=== PATIENT | female | born 1955 | race Caucasian/White ===

== ENCOUNTER 2019-02-20 19:06 | Inpatient (IN) | payer MEDICARE ==
[2019-02-20 20:08] VITALS: BMI 39.6
[2019-02-20] MEDS ORDERED: Ondansetron PF 4 MG/2 ML Vial IVP PRN (20:30)
[2019-02-20] MEDS ORDERED: Cepastat Lozenges 1 LOZ PO PRN (20:30)
[2019-02-20] MEDS ORDERED: Nitroglycerin 0.4 MG TAB (25 Tab Bottle) SL PRN (20:30)
[2019-02-20] MEDS ORDERED: Calcium Carbonate 500 MG ChewTAB PO PRN (20:30)
[2019-02-20] MEDS ORDERED: Acetaminophen 325 MG TAB PO PRN (20:30)
[2019-02-20] MEDS ORDERED: Promethazine HCl 25 MG/ML VIAL IM PRN (20:32)
[2019-02-20] MEDS: Enoxaparin Sodium 40 MG/0.4 ML SYRINGE SC SCH (21:32)
[2019-02-20] MEDS: Atorvastatin Calcium 40 MG TAB PO SCH (21:32)
[2019-02-20] MEDS: Melatonin 3 MG TAB PO SCH (21:33)
[2019-02-20] MEDS: Piperacillin/Tazobactam 4.5 GM in Sodium Chloride 0.9% 100 ML IVPB SCH (21:33)
[2019-02-20] MEDS: Metoprolol Tartrate 25 MG TAB PO SCH (21:33)
[2019-02-20] MEDS: traZODone HCl 50 MG TAB PO SCH (21:34)
[2019-02-20] MEDS: HYDROmorphone 2 MG TAB PO PRN (21:34)
[2019-02-21] MEDS ORDERED: SODIUM CHLORIDE 0.9% IVPB SCH (04:00)
[2019-02-21] MEDS ORDERED: [UNRECOGNIZED DRUG - OTHER] IVPB SCH (04:00)
[2019-02-21] MEDS ORDERED: Piperacillin/Tazobactam 4.5 GM in Sodium Chloride 0.9% 100 ML IVPB SCH (04:00)
[2019-02-21] MEDS ORDERED: Piperacillin/Tazobactam 4.5 GM VIAL IVPB SCH (04:00)
[2019-02-21] MEDS: Piperacillin/Tazobactam 4.5 GM in Sodium Chloride 0.9% 100 ML IVPB SCH ×3 (04:49→20:34)
[2019-02-21 05:39] LABS: #Eosinphils 0.2 thou/uL (0.0-0.7); #Lymphocytes 1.3 thou/uL (1.20-3.40); #Monocytes 0.4 thou/uL (0.11-0.59); #Neutrophils 2.4 thou/uL (1.40-6.50); %Basophils 0.7 % (0.0-1.0); %Eosinophils 4.8 % (0.0-10.0); %Lymphocytes 30.5 % (21.0-51.0); %Monocytes 8.6 % (0.0-10.0); %Neutrophils 55.4 % (42.0-75.0); Hemoglobin 9.5 g/dL (12.0-16.0); Mean Corpuscular HGB CONC 31.6 g/dL (32.0-36.0); Mean Corpuscular Hemoglobin 27.3 pg (27.0-31.0); Mean Corpuscular Volume 86.5 fL (78.0-98.0); Mean Platelet Volume 6.5 fL (7.4-10.4); Platelet Count 186 thou/uL (130-400); RBC Distribution Width 14.7 % (11.5-14.5); Red Blood Cell (RBC) Count 3.48 mill/uL (4.20-5.40); White Blood Cell (WBC) Count 4.2 thou/uL (4.8-10.8)
[2019-02-21 05:54] LABS: ALT (SGPT) 42 U/L (8-55); AST (SGOT) 42 U/L (5-34); Albumin 3.1 g/dL (3.4-4.8); Alkaline Phosphatase 94 U/L (40-150); Anion Gap 13 mmol/L (10-20); BUN (Urea Nitrogen) 12 mg/dL (9.8-20.1); Bilirubin, Total 0.6 mg/dL (0.2-1.2); Calc. Creatinine Clearance 136 mL/min (70-130); Calcium 9.8 mg/dL (7.8-10.44); Carbon Dioxide 25 mmol/L (23-31); Chloride 108 mmol/L (98-107); Estimated GFR-MDRD 86; Globulin 2.6 g/dL (2.4-3.5); Glucose 105 mg/dL (80-115); Potassium 4.1 mmol/L (3.5-5.1); Protein, Total 5.7 g/dL (6.0-8.3); Sodium 142 mmol/L (136-145)
[2019-02-21] MEDS: HYDROmorphone 2 MG TAB PO PRN ×4 (06:14→20:08)
[2019-02-21] MEDS ORDERED: Enoxaparin Sodium 40 MG/0.4 ML SYRINGE SC SCH (09:00)
[2019-02-21] MEDS ORDERED: Clopidogrel Bisulfate 75 MG TAB PO SCH (09:00)
[2019-02-21] MEDS: Metoprolol Tartrate 25 MG TAB PO SCH ×2 (09:18→20:34)
[2019-02-21] MEDS: Aspirin Chewable 81 MG TAB PO SCH (09:21)
[2019-02-21] MEDS: Enoxaparin Sodium 40 MG/0.4 ML SYRINGE SC SCH (20:33)
[2019-02-21] MEDS: Melatonin 3 MG TAB PO SCH (20:34)
[2019-02-21] MEDS: Atorvastatin Calcium 40 MG TAB PO SCH (20:35)
[2019-02-21] MEDS: traZODone HCl 50 MG TAB PO SCH (20:35)
[2019-02-22] MEDS: Piperacillin/Tazobactam 4.5 GM in Sodium Chloride 0.9% 100 ML IVPB SCH ×3 (04:39→20:10)
[2019-02-22] MEDS: HYDROmorphone 2 MG TAB PO PRN ×4 (06:01→19:13)
[2019-02-22] MEDS: Clopidogrel Bisulfate 75 MG TAB PO SCH (09:03)
[2019-02-22] MEDS: Aspirin Chewable 81 MG TAB PO SCH (09:03)
[2019-02-22] MEDS: Metoprolol Tartrate 25 MG TAB PO SCH ×2 (09:03→20:09)
[2019-02-22] MEDS: Enoxaparin Sodium 40 MG/0.4 ML SYRINGE SC SCH (20:09)
[2019-02-22] MEDS: Atorvastatin Calcium 40 MG TAB PO SCH (20:09)
[2019-02-22] MEDS: Melatonin 3 MG TAB PO SCH (20:09)
[2019-02-22] MEDS: traZODone HCl 50 MG TAB PO SCH (20:10)
[2019-02-23] MEDS: Piperacillin/Tazobactam 4.5 GM in Sodium Chloride 0.9% 100 ML IVPB SCH ×3 (04:38→20:25)
[2019-02-23] MEDS: HYDROmorphone 2 MG TAB PO PRN ×4 (05:50→19:42)
[2019-02-23] MEDS: Clopidogrel Bisulfate 75 MG TAB PO SCH (09:50)
[2019-02-23] MEDS: Aspirin Chewable 81 MG TAB PO SCH (09:50)
[2019-02-23] MEDS: Metoprolol Tartrate 25 MG TAB PO SCH ×2 (09:50→20:24)
[2019-02-23] MEDS: Atorvastatin Calcium 40 MG TAB PO SCH (20:24)
[2019-02-23] MEDS: traZODone HCl 50 MG TAB PO SCH (20:25)
[2019-02-23] MEDS: Melatonin 3 MG TAB PO SCH (20:25)
[2019-02-23] MEDS: Enoxaparin Sodium 40 MG/0.4 ML SYRINGE SC SCH (20:26)
[2019-02-24] MEDS: Piperacillin/Tazobactam 4.5 GM in Sodium Chloride 0.9% 100 ML IVPB SCH ×3 (04:51→20:43)
[2019-02-24] MEDS: HYDROmorphone 2 MG TAB PO PRN ×4 (04:52→18:03)
--- NOTE | 2019-02-24 07:12 | PRG ---
DATE OF SERVICE: 02/23/2019 SUBJECTIVE: Patient visiting with family in her room with no complaints and asking if and when she can start discussing ambulation in the distant future. OBJECTIVE: VITAL SIGNS: Temperature 97.8, pulse 77, respirations 20, O2 sats 97% on room air, blood pressure 129/63. LUNGS: Clear. CARDIAC: Shows regular rhythm. No gallops or murmurs. EXTREMITIES: Left BKA is healing with eschar at the suture line. ASSESSMENT: 1. Resolving left below the knee amputation with some eschar and possible dehiscence. When suture is removed, we will discuss with surgery. 2. Hypertension, controlled to goal. 3. Coronary artery disease, asymptomatic. 4. Peripheral vascular disease, severe in left leg, but otherwise stable. PLAN: 1. Continue antiplatelet drugs of aspirin and Plavix. 2. Continue Zosyn until March 09 for Pseudomonas bacteremia resolution. 3. Continue wound care. 4. Continue to ambulate with wheelchair. Job ID: [id number]
--- NOTE | 2019-02-24 07:16 | PRG ---
DATE OF SERVICE: 02/22/2019 SUBJECTIVE: The patient feels well. No complaints. Cooperating with wound care and assisting with ADLs. OBJECTIVE: VITAL SIGNS: Shows temperature is 96.4, pulse 63, respirations 16, O2 sats 97% on room air, blood pressure 125/71. ASSESSMENT: 1. Acute left below the knee amputation shows minimal drainage from the lateral aspect of the wound, but no erythema or warmth, tenderness and healing otherwise with areas of eschar. 2. Resolving left below the knee amputation. We will discuss with surgery when suture to be removed. 3. Stable peripheral vascular disease. 4. Resolving Pseudomonas bacteremia on Zosyn until March 09. 5. Stable coronary disease asymptomatic. PLAN: 1. Continue PT/OT. 2. Continue wound care. 3. Continue IV Zosyn. 4. Continue to monitor for recurrent angina. Job ID: [id number]
--- NOTE | 2019-02-24 07:22 | PRG ---
DATE OF SERVICE: 02/21/2019 SUBJECTIVE: The patient feels well, lying in bed, cooperating with PT and Wound Care with no complaints of chest pain, shortness of breath, or leg pain. OBJECTIVE: VITAL SIGNS: Temperature is 97.6, pulse 67, respirations 20, O2 sats 97% on room air, blood pressure 125/62. LUNGS: Clear. CARDIAC: Regular rhythm. ABDOMEN: Soft and nontender. EXTREMITIES: Left BKA shows no drainage, persistent eschar, possibly slightly decreased. No erythema or warmth. ASSESSMENT: 1. Resolving left xwanm-ixj-fgnt amputation. 2. Resolving Pseudomonas bacteremia. 3. Stable hypertension. 4. Stable peripheral vascular disease and coronary artery disease. PLAN: 1. Continue PT, OT and wound care. 2. Continue Zosyn until March 09. 3. Continue pain relief with hydromorphone. 4. Continue DVT and stress ulcer prophylaxis. 5. Continue antiplatelet drugs. Job ID: [id number]
--- NOTE | 2019-02-24 07:34 | HP ---
HISTORY OF PRESENT ILLNESS: The patient is an unfortunate 63-year-old white female who has undergone left njauo-ozg-cfun amputation after failing several times to provide recirculation to left lower extremity for severe ischemia and inability to heal a left foot lesion. This she states dates from a previous traumatic injury to her left leg several years ago. She was a smoker, 10-19 cigarettes a day until 6-12 months ago, but has no other peripheral vascular disease. She has been attempted to have revascularization twice with rejection of the grafts and significant severe arterial bleeding requiring revision and then subsequently removal of the grafts and left xchdh-gqs-rawm amputation. She is doing well at this time and is admitted here for PT/OT and wound care. Her surgeon is concerned that her left BKA stump will not completely heal and will dehisce somewhat when she has her sutures removed, but we will monitor closely. At present, she is on Plavix 75 daily, Lovenox 40 subcu daily, Dilaudid 4 mg every 4 hours as needed, Melatonin 3 mg nightly, metoprolol 12.5 twice daily, Zosyn 4.5 g q.8 hours until March 09, trazodone 50 mg at bedtime, atorvastatin 80 mg at bedtime, calcium carbonate every 4 hours, aspirin 81 mg daily. She is on the antibiotics because of gangrene of the left stump previously, most likely due to ischemia and should heal, but will need to be monitored closely. She has had no evidence of sepsis associated with the gangrene. The patient is also on the Zosyn, because of bacteremia showing Pseudomonas in 2/2 cultures as well as the wound culture and therefore need for 2 weeks of IV antibiotics for bacteremia. PAST MEDICAL HISTORY: Positive coronary artery disease status post prior myocardial infarction and subsequent need for coronary angioplasty x2. She also has a history of cholecystectomy, appendectomy, bilateral tubal ligation, previous transient ischemic attack. ALLERGIES: SHE IS ALLERGIC TO DEMEROL. SOCIAL HISTORY: She smoked a pack a day until last year. She drinks only rarely. She lives with her daughter. FAMILY MEDICAL HISTORY: Noncontributory. REVIEW OF SYSTEMS: HEENT: She denies headaches, dizziness, change in vision or hearing, hoarseness or dysphagia. PULMONARY: She denies cough, sputum production, pneumonia, asthma, tuberculosis. CARDIOVASCULAR: She denies chest pain, orthopnea, paroxysmal nocturnal dyspnea or edema. GASTROINTESTINAL: She denies nausea, vomiting, diarrhea, constipation, or abdominal pain. GENITOURINARY: Denies dysuria, hematuria or nocturia. MUSCULOSKELETAL: See history of present illness. PHYSICAL EXAMINATION: GENERAL: Patient is a pleasant, obese, white female in no acute distress, lying in bed, oriented x3 and cooperative. VITAL SIGNS: Showed her to have temperature of 98.2, pulse 64, respirations 16, O2 sats 92% on room air, blood pressure 124/75. HEENT: Pupils are equal, round, and reactive to light and accommodation. Sclerae anicteric. Conjunctivae pale. Oral mucous membranes well hydrated. NECK: Supple. There are no nodes or masses. JVP is not elevated. LUNGS: Clear. CARDIAC: Showed regular rhythm. ABDOMEN: Soft, nontender. SKIN: Show left ekupx-qux-ygwm amputation with eschar at the suture line, but with no drainage, erythema, or particular tenderness NEUROLOGICAL: Intact, cranial nerves 2-12. Deep tendon reflex 2+ and equal. Absent Babinski. ASSESSMENT: 1. Severe peripheral vascular disease, status post left wfxbm-lsb-xsas amputation after 2 failed femoral-popliteal grafts with subsequent near life-limiting bleeding after rejection. 2. Pseudomonas bacteremia, on Zosyn until 2 week course is finished. 3. Coronary artery disease, asymptomatic, status post stents. 4. History of nicotine abuse, now resolved, last year. 5. Hypertension, controlled to goal. PLAN: 1. Continue IV Zosyn until March 09. 2. Continue wound care. 3. Continue antiplatelet drugs with Plavix. 4. Continue DVT prophylaxis with Lovenox. 5. Continue pain relief with hydromorphone. Job ID: [id number]
[2019-02-24] MEDS: Metoprolol Tartrate 25 MG TAB PO SCH ×2 (09:07→20:41)
[2019-02-24] MEDS: Aspirin Chewable 81 MG TAB PO SCH (09:07)
[2019-02-24] MEDS: Clopidogrel Bisulfate 75 MG TAB PO SCH (09:07)
[2019-02-24] MEDS: Melatonin 3 MG TAB PO SCH (20:41)
[2019-02-24] MEDS: Atorvastatin Calcium 40 MG TAB PO SCH (20:41)
[2019-02-24] MEDS: traZODone HCl 50 MG TAB PO SCH (20:42)
[2019-02-24] MEDS: Enoxaparin Sodium 40 MG/0.4 ML SYRINGE SC SCH (20:42)
--- NOTE | 2019-02-24 21:32 | PRG ---
DATE OF SERVICE: 02/24/2019 SUBJECTIVE: The patient is a 63-year-old white female with history of severe peripheral vascular disease, status post left BKA, who is now having increasing pain and erythema with left BKA. OBJECTIVE: VITAL SIGNS: Temperature 97, pulse 59, respirations 18, O2 sats 96% on room air, and blood pressure is 118/53. SKIN: New left stump shows increased erythema, tenderness, no drainage. LUNGS: Clear. CARDIAC: Regular rhythm. ASSESSMENT: 1. Severe peripheral vascular disease with left swevh-unf-spsx amputation showing signs of increased infection despite being on Zosyn, which we will continue until March 09. 2. Hypertension, controlled to goal. PLAN: Send picture to surgeon. Continue Zosyn, culture drainage if possible. Consider opening wound. Job ID: [id number]
[2019-02-25] MEDS: HYDROmorphone 2 MG TAB PO PRN ×5 (05:13→21:25)
[2019-02-25] MEDS: Piperacillin/Tazobactam 4.5 GM in Sodium Chloride 0.9% 100 ML IVPB SCH ×3 (05:13→21:24)
[2019-02-25] MEDS: Aspirin Chewable 81 MG TAB PO SCH (09:19)
[2019-02-25] MEDS: Metoprolol Tartrate 25 MG TAB PO SCH ×2 (09:19→21:25)
[2019-02-25] MEDS: Clopidogrel Bisulfate 75 MG TAB PO SCH (09:19)
[2019-02-25] MEDS ORDERED: Piperacillin/Tazobactam 4.5 GM VIAL ONE (13:09)
--- NOTE | 2019-02-25 20:42 | PRG ---
DATE OF SERVICE: 02/25/2019 SUBJECTIVE: The patient is a very pleasant 63-year-old white female with a history of severe PVD of the left leg, status post left below-knee amputation after failed femoral-popliteal bypass, who is having decreasing pain in her left BKA stump, but is having significant eschar and erythema 3 weeks after surgery. We discussed with surgeon, who feels that the incision will open when sutures were removed and states they can be removed at anytime for secondary healing. OBJECTIVE: VITAL SIGNS: Her blood pressure 113/53, temperature is 97.6, pulse 60, respirations 16, and O2 sats 95% on room air. LUNGS: Clear. CARDIAC: Regular rhythm. EXTREMITIES: Show left BKA with decreased erythema of persistent eschar, minimal drainage. Cultures showing minimal bacteria. ASSESSMENT: 1. Resolving left below knee amputation with questionable infection and poor healing, but with decreasing pain, so we will continue to monitor. We will not remove sutures at the patient's request for least another week. We will continue on her piperacillin until March 09. 2. Hypertension, controlled to goal and we will continue to monitor. Job ID: [id number]
[2019-02-25] MEDS: Atorvastatin Calcium 40 MG TAB PO SCH (21:24)
[2019-02-25] MEDS: Melatonin 3 MG TAB PO SCH (21:25)
[2019-02-25] MEDS: traZODone HCl 50 MG TAB PO SCH (21:25)
[2019-02-25] MEDS: Enoxaparin Sodium 40 MG/0.4 ML SYRINGE SC SCH (21:27)
[2019-02-26] MEDS: HYDROmorphone 2 MG TAB PO PRN ×5 (01:34→20:33)
[2019-02-26] MEDS: Piperacillin/Tazobactam 4.5 GM in Sodium Chloride 0.9% 100 ML IVPB SCH ×3 (05:30→20:31)
[2019-02-26] MEDS: Aspirin Chewable 81 MG TAB PO SCH (08:19)
[2019-02-26] MEDS: Clopidogrel Bisulfate 75 MG TAB PO SCH (08:19)
[2019-02-26] MEDS: Metoprolol Tartrate 25 MG TAB PO SCH ×2 (08:19→20:30)
[2019-02-26] MEDS: Atorvastatin Calcium 40 MG TAB PO SCH (20:30)
[2019-02-26] MEDS: traZODone HCl 50 MG TAB PO SCH (20:30)
[2019-02-26] MEDS: Melatonin 3 MG TAB PO SCH (20:30)
[2019-02-26] MEDS: Enoxaparin Sodium 40 MG/0.4 ML SYRINGE SC SCH (20:31)
--- NOTE | 2019-02-26 22:16 | PRG ---
DATE OF SERVICE: 02/26/2019 SUBJECTIVE: The patient feels well. She states that her leg is feeling better. She is learning to strengthen her right leg, is hopping on a walker. Shows still a significant amount of eschar on the left leg with some tenderness on palpation of the eschar, but minimal drainage. OBJECTIVE: VITAL SIGNS: Temperature is 97.5 pulse 75, respirations 18, O2 sat is 97% on room air, blood pressure 127/57. LUNGS: Clear. CARDIAC: Examination is regular rhythm. LABORATORY DATA: Culture shows only a few yeast. ASSESSMENT: Resolving left lektz-yfz-swfr amputation with persistent eschar, possible necrosis under the eschar, drainage. There is no evidence of increased swelling or erythema. LUNGS: Clear. CARDIAC: Showed regular rhythm. ABDOMEN: Soft, nontender. ASSESSMENT: 1. Slowly healing left uyirt-xfl-oiuy amputation with possible need for secondary healing after sutures removed next week. 2. Stable hypertension. PLAN: 1. Continue wound care. 2. Continue IV piperacillin until March 09. 3. Continue blood pressure control. Job ID: [id number]
[2019-02-27] MEDS: Piperacillin/Tazobactam 4.5 GM in Sodium Chloride 0.9% 100 ML IVPB SCH ×3 (04:59→20:17)
[2019-02-27] MEDS: HYDROmorphone 2 MG TAB PO PRN ×4 (05:00→18:33)
[2019-02-27] MEDS: Aspirin Chewable 81 MG TAB PO SCH (09:25)
[2019-02-27] MEDS: Metoprolol Tartrate 25 MG TAB PO SCH ×2 (09:25→20:17)
[2019-02-27] MEDS: Clopidogrel Bisulfate 75 MG TAB PO SCH (09:25)
[2019-02-27] MEDS: Enoxaparin Sodium 40 MG/0.4 ML SYRINGE SC SCH (20:16)
[2019-02-27] MEDS: Atorvastatin Calcium 40 MG TAB PO SCH (20:16)
[2019-02-27] MEDS: traZODone HCl 50 MG TAB PO SCH (20:17)
[2019-02-27] MEDS: Melatonin 3 MG TAB PO SCH (20:17)
--- NOTE | 2019-02-27 20:58 | PRG ---
DATE OF SERVICE: 02/27/2019 SUBJECTIVE: The patient feels well, lying in bed, has been scrubbing her wounds, has been doing PT, hopping on her right leg, feeling well, but still worried about the wound opening with the sutures removed next week. OBJECTIVE: Shows; 1. GENERAL: Wound appears to be healing, but with eschar in between the sutures, which is appearing to break loose. 2. VITAL SIGNS: Temperature is 98, pulse 70, respirations 16, O2 sats 95% on room air, blood pressure 116/60. 3. LUNGS: Clear. 4. CARDIAC: Shows regular rhythm. 5. ABDOMEN: Soft and nontender. ASSESSMENT: 1. Peripheral vascular disease status post left ehdrp-tdk-wxac amputation with slow healing with no evidence of infection, on IV meropenem until March 09. 2. Hypertension, controlled to goal. 3. Mild anxiety. PLAN: 1. Continue PT/OT. 2. Continue IV meropenem until March 09. 3. Continue wound care with sutures to be removed next week. Job ID: [id number]
[2019-02-28] MEDS: Piperacillin/Tazobactam 4.5 GM in Sodium Chloride 0.9% 100 ML IVPB SCH ×3 (04:54→20:36)
[2019-02-28] MEDS: HYDROmorphone 2 MG TAB PO PRN ×5 (04:57→21:42)
[2019-02-28] MEDS: Aspirin Chewable 81 MG TAB PO SCH (08:24)
[2019-02-28] MEDS: Clopidogrel Bisulfate 75 MG TAB PO SCH (08:24)
[2019-02-28] MEDS: Metoprolol Tartrate 25 MG TAB PO SCH ×2 (08:24→20:33)
[2019-02-28] MEDS: Melatonin 3 MG TAB PO SCH (20:34)
[2019-02-28] MEDS: Enoxaparin Sodium 40 MG/0.4 ML SYRINGE SC SCH (20:35)
[2019-02-28] MEDS: Atorvastatin Calcium 40 MG TAB PO SCH (20:35)
[2019-02-28] MEDS: traZODone HCl 50 MG TAB PO SCH (20:35)
[2019-03-01] MEDS: HYDROmorphone 2 MG TAB PO PRN ×4 (05:02→19:30)
[2019-03-01] MEDS: Piperacillin/Tazobactam 4.5 GM in Sodium Chloride 0.9% 100 ML IVPB SCH ×3 (05:03→20:20)
[2019-03-01] MEDS: Metoprolol Tartrate 25 MG TAB PO SCH ×2 (08:58→20:19)
[2019-03-01] MEDS: Aspirin Chewable 81 MG TAB PO SCH (08:58)
[2019-03-01] MEDS: Clopidogrel Bisulfate 75 MG TAB PO SCH (08:58)
[2019-03-01] MEDS: Atorvastatin Calcium 40 MG TAB PO SCH (20:19)
[2019-03-01] MEDS: traZODone HCl 50 MG TAB PO SCH (20:19)
[2019-03-01] MEDS: Melatonin 3 MG TAB PO SCH (20:19)
[2019-03-01] MEDS: Enoxaparin Sodium 40 MG/0.4 ML SYRINGE SC SCH (20:20)
[2019-03-02] MEDS: HYDROmorphone 2 MG TAB PO PRN ×4 (02:35→22:38)
[2019-03-02] MEDS: Piperacillin/Tazobactam 4.5 GM in Sodium Chloride 0.9% 100 ML IVPB SCH ×3 (04:57→20:34)
[2019-03-02] MEDS: Aspirin Chewable 81 MG TAB PO SCH (08:33)
[2019-03-02] MEDS: Metoprolol Tartrate 25 MG TAB PO SCH ×2 (08:33→20:36)
[2019-03-02] MEDS: Clopidogrel Bisulfate 75 MG TAB PO SCH (08:34)
--- NOTE | 2019-03-02 09:28 | PRG ---
DATE OF SERVICE: 02/28/2019 SUBJECTIVE: The patient is a very pleasant 63-year-old white female with a history of hypertension and severe peripheral vascular disease of the left leg, requiring left goqba-kzy-mzcc amputation after inability to improve circulation with left femoral arterial stent. She is on IV antibiotics and there is still concern of poor healing of the left BKA stump by her surgeon, Dr. Brown and therefore she is to have her sutures remain in for 4 weeks prior to removal and this will be done next week. She is having persistent, but decreased tenderness at the incision site, but not otherwise in the stump. OBJECTIVE: VITAL SIGNS: Showed to have temperature 97.5, pulse 71, respirations 19, O2 saturations 97% on room air, and blood pressure 108/66. LUNGS: Clear. CARDIAC: Showed regular rhythm. ABDOMEN: Soft and nontender. Left stump shows some mild erythema on the incision site, but significant eschar in the middle of the incision along the incision site with some loosening of the eschars, but no drainage. ASSESSMENT: 1. Slowly resolving left gudgt-vhi-enwf amputation with some evidence of poor healing at the incision site. 2. Stable hypertension. 3. Severe peripheral vascular disease with risk of poor healing. PLAN: 1. Continue sutures in place until next week and then remove and monitor for secondary healing. 2. Continue blood pressure control. 3. Continue IV meropenem until next week. Job ID: [id number]
--- NOTE | 2019-03-02 15:56 | PRG ---
DATE OF SERVICE: 03/02/2019 SUBJECTIVE: Ms. Kelsey is resting comfortably. Pain is controlled. Denies any complaints. No family at bedside, discussed with nursing. OBJECTIVE: VITAL SIGNS: She is afebrile. Heart rate 67, respirations 21, oxygen saturation 97% on room air, blood pressure 114/65. CARDIOVASCULAR: S1 and S2 plus. RESPIRATORY: Normal vesicular breath sounds. ABDOMEN: Soft, obese, nontender. Bowel sounds heard in all quadrants. EXTREMITIES: Without cyanosis or clubbing. Left BKA. IMPRESSION: 1. Coronary artery disease. 2. Peripheral vascular disease. 3. Dyslipidemia. 4. Deconditioning. PLAN: 1. Continue heart healthy diet. 2. Wound care. 3. Monitor blood pressure. 4. Routine laboratory values. 5. Physical therapy. 6. DVT and stress ulcer prophylaxis. 7. Decubitus precautions. 8. Routine laboratory values. 9. Discussed with the patient in detail. All questions answered. Job ID: [id number]
[2019-03-02] MEDS: Enoxaparin Sodium 40 MG/0.4 ML SYRINGE SC SCH (20:35)
[2019-03-02] MEDS: Atorvastatin Calcium 40 MG TAB PO SCH (20:36)
[2019-03-02] MEDS: traZODone HCl 50 MG TAB PO SCH (20:36)
[2019-03-02] MEDS: Melatonin 3 MG TAB PO SCH (20:36)
[2019-03-03] MEDS: HYDROmorphone 2 MG TAB PO PRN ×5 (04:01→21:29)
[2019-03-03] MEDS: Piperacillin/Tazobactam 4.5 GM in Sodium Chloride 0.9% 100 ML IVPB SCH ×3 (04:01→20:36)
[2019-03-03] MEDS: Aspirin Chewable 81 MG TAB PO SCH (08:32)
[2019-03-03] MEDS: Metoprolol Tartrate 25 MG TAB PO SCH ×2 (08:33→20:37)
[2019-03-03] MEDS: Clopidogrel Bisulfate 75 MG TAB PO SCH (08:33)
[2019-03-03] MEDS ORDERED: Piperacillin/Tazobactam 4.5 GM VIAL ONE ×3 (12:54→23:11)
--- NOTE | 2019-03-03 16:12 | PRG ---
DATE OF SERVICE: 03/03/2019 SUBJECTIVE: Ms. Kelsey is doing well, denies any complaints, resting comfortably in bed. Pain is well controlled. Discussed with nursing. OBJECTIVE: VITAL SIGNS: She is afebrile, heart rate 65, respirations 20, oxygen saturation 96% on room air, and blood pressure 125/70. CARDIOVASCULAR SYSTEM: S1 and S2 plus. RESPIRATORY SYSTEM: Normal vesicular breath sounds. ABDOMEN: Soft, obese, nontender. Bowel sounds heard in all quadrants. EXTREMITIES: Without cyanosis or clubbing. Left BKA. CENTRAL NERVOUS SYSTEM: Awake and responsive. Cranial nerves 2 through 12 intact. Generalized weakness. IMPRESSION: 1. Severe peripheral vascular disease, requiring left BKA. 2. Coronary artery disease. 3. Dyslipidemia. 4. Deconditioning. PLAN: 1. Continue heart healthy diet. 2. Wound care. 3. Nutritional support. 4. DVT and stress ulcer prophylaxis. 5. Decubitus precautions. 6. Routine laboratory values. 7. Dr. Frantz Persaud will assume care at 9 p[address] [facility]. Job ID: [id number]
[2019-03-03] MEDS: Enoxaparin Sodium 40 MG/0.4 ML SYRINGE SC SCH (20:37)
[2019-03-03] MEDS: Atorvastatin Calcium 40 MG TAB PO SCH (20:37)
[2019-03-03] MEDS: Melatonin 3 MG TAB PO SCH (20:37)
[2019-03-03] MEDS: traZODone HCl 50 MG TAB PO SCH (20:37)
[2019-03-04] MEDS: HYDROmorphone 2 MG TAB PO PRN ×5 (02:57→22:58)
[2019-03-04] MEDS: Piperacillin/Tazobactam 4.5 GM in Sodium Chloride 0.9% 100 ML IVPB SCH ×3 (05:19→20:45)
--- NOTE | 2019-03-04 07:09 | PRG ---
DATE OF SERVICE: 03/01/2019 SUBJECTIVE: The patient feels well, lying in bed, decreasing pain in her left stump. Working well with therapy with increasing strength in her right leg. She is on IV antibiotics until February 27 and IV piperacillin till March 09. She said no overt fever or chills. She has had decreasing pain left stump appears to be healing well with decreasing erythema, but still having some eschar between the sutures, which appears to possibly need to be debrided when sutures were removed. The patient is hesitant to have this done at this time. We will wait till next week. OBJECTIVE: VITAL SIGNS: Her temperature 97.6, pulse 68, respirations 17, O2 sats 98% on room air, blood pressure 118/64. LUNGS: Clear. CARDIAC: Regular rhythm. ABDOMEN: Soft and nontender. ASSESSMENT: 1. Resolving left below knee amputation with persistent evidence of possible poor healing in certain parts of the incision, but with decreasing pain and tenderness, on IV antibiotics until March 09. 2. Hypertension, controlled to goal. 3. Severe peripheral vascular disease in the left leg, but appears to be improving with no further pain. PLAN: 1. Continue karime till next week and then remove secondary wound care. 2. Continue IV Zosyn until March 09. 3. Continue PT/OT, and strengthening of the right leg. Job ID: [id number]
[2019-03-04] MEDS: Clopidogrel Bisulfate 75 MG TAB PO SCH (08:14)
[2019-03-04] MEDS: Aspirin Chewable 81 MG TAB PO SCH (08:14)
[2019-03-04] MEDS: Metoprolol Tartrate 25 MG TAB PO SCH ×2 (08:14→20:46)
--- NOTE | 2019-03-04 08:20 | PRG ---
DATE OF SERVICE: 03/04/2019 SUBJECTIVE: The patient feels well, but is having some concern about her incision as it does appear to have more eschar, necrotic skin and agrees that sutures need to be removed. OBJECTIVE: VITAL SIGNS: Temperature is 97.2, pulse 65, respirations 20, O2 saturations 96% on room air, and blood pressure 119/73. CARDIAC: Shows regular rhythm. EXTREMITIES: Left BKA stump shows increased necrosis of the suture line. ASSESSMENT: 1. Left below knee amputation with adequate healing of suture line. 2. No evidence of active circulation and femoral graft dysfunction. 3. Stable hypertension. 4. Increased anxiety. PLAN: 1. Remove sutures this afternoon with wound care. 2. Continue PT/OT. 3. Continue blood pressure control. Job ID: [id number]
[2019-03-04] MEDS ORDERED: Sodium Chloride 0.9% 10 ML ONE (13:59)
[2019-03-04] MEDS: Nystatin Cream 15 GM TUBE TOP SCH (20:42)
[2019-03-04] MEDS: Enoxaparin Sodium 40 MG/0.4 ML SYRINGE SC SCH (20:45)
[2019-03-04] MEDS: Atorvastatin Calcium 40 MG TAB PO SCH (20:45)
[2019-03-04] MEDS: traZODone HCl 50 MG TAB PO SCH (20:46)
[2019-03-04] MEDS: Melatonin 3 MG TAB PO SCH (20:47)
[2019-03-05] MEDS: HYDROmorphone 2 MG TAB PO PRN ×5 (05:44→22:15)
[2019-03-05] MEDS: Piperacillin/Tazobactam 4.5 GM in Sodium Chloride 0.9% 100 ML IVPB SCH ×3 (05:45→20:00)
[2019-03-05] MEDS: Clopidogrel Bisulfate 75 MG TAB PO SCH (08:09)
[2019-03-05] MEDS: Metoprolol Tartrate 25 MG TAB PO SCH ×2 (08:09→20:02)
[2019-03-05] MEDS: Aspirin Chewable 81 MG TAB PO SCH (08:09)
[2019-03-05] MEDS: Nystatin Cream 15 GM TUBE TOP SCH ×2 (08:10→20:04)
[2019-03-05] MEDS: Enoxaparin Sodium 40 MG/0.4 ML SYRINGE SC SCH (20:00)
[2019-03-05] MEDS: Melatonin 3 MG TAB PO SCH (20:01)
[2019-03-05] MEDS: traZODone HCl 50 MG TAB PO SCH (20:01)
[2019-03-05] MEDS: Atorvastatin Calcium 40 MG TAB PO SCH (20:03)
--- NOTE | 2019-03-05 20:40 | PRG ---
DATE OF SERVICE: 03/05/2019 SUBJECTIVE: The patient feels well, but states she had significant pain yesterday after sutures were removed. She has had compression dressing all day today and has noticed some minimal drainage from the left stump. OBJECTIVE: EXTREMITIES: Dressing is dry except for an area of dark blood at the lateral aspect of the stump. LUNGS: Clear. CARDIAC: Regular rhythm. VITAL SIGNS: Temperature is 98, pulse 69, respirations 20, O2 sats 93% on room air, blood pressure 127/74. ASSESSMENT: 1. Left ooixr-zfn-eglk amputation secondary to severe peripheral vascular disease, healing slowly with dehiscence of wound pending. 2. Hypertension, controlled to goal. PLAN: 1. Continue wound care. 2. Take pictures and send to surgeon tomorrow, assess followup surgically. 3. Continue IV Zosyn until March 09. 4. Obtain CBC and comprehensive metabolic panel in the a.m. Job ID: [id number]
[2019-03-06] MEDS: Piperacillin/Tazobactam 4.5 GM in Sodium Chloride 0.9% 100 ML IVPB SCH ×3 (05:10→20:07)
[2019-03-06] MEDS: HYDROmorphone 2 MG TAB PO PRN ×5 (05:12→22:16)
[2019-03-06 05:37] LABS: #Eosinphils 0.3 thou/uL (0.0-0.7); #Lymphocytes 1.9 thou/uL (1.20-3.40); #Monocytes 0.5 thou/uL (0.11-0.59); %Basophils 0.9 % (0.0-1.0); %Eosinophils 6.2 % (0.0-10.0); %Lymphocytes 40.1 % (21.0-51.0); %Monocytes 10.2 % (0.0-10.0); %Neutrophils 42.6 % (42.0-75.0); Hemoglobin 11.2 g/dL (12.0-16.0); Mean Corpuscular HGB CONC 31.5 g/dL (32.0-36.0); Mean Corpuscular Hemoglobin 27.9 pg (27.0-31.0); Mean Corpuscular Volume 88.8 fL (78.0-98.0); Mean Platelet Volume 7.3 fL (7.4-10.4); Platelet Count 166 thou/uL (130-400); RBC Distribution Width 14.7 % (11.5-14.5); White Blood Cell (WBC) Count 4.7 thou/uL (4.8-10.8)
[2019-03-06 05:53] LABS: ALT (SGPT) 36 U/L (8-55); AST (SGOT) 31 U/L (5-34); Albumin 3.5 g/dL (3.4-4.8); Alkaline Phosphatase 104 U/L (40-150); Anion Gap 13 mmol/L (10-20); BUN (Urea Nitrogen) 9 mg/dL (9.8-20.1); Bilirubin, Total 0.3 mg/dL (0.2-1.2); Calc. Creatinine Clearance 136 mL/min (70-130); Calcium 10.1 mg/dL (7.8-10.44); Carbon Dioxide 24 mmol/L (23-31); Chloride 109 mmol/L (98-107); Estimated GFR-MDRD 86; Globulin 2.7 g/dL (2.4-3.5); Glucose 96 mg/dL (80-115); Potassium 4.2 mmol/L (3.5-5.1); Protein, Total 6.2 g/dL (6.0-8.3); Sodium 142 mmol/L (136-145)
[2019-03-06] MEDS: Nystatin Cream 15 GM TUBE TOP SCH ×2 (09:14→22:16)
[2019-03-06] MEDS: Clopidogrel Bisulfate 75 MG TAB PO SCH (09:15)
[2019-03-06] MEDS: Aspirin Chewable 81 MG TAB PO SCH (09:15)
[2019-03-06] MEDS: Metoprolol Tartrate 25 MG TAB PO SCH ×2 (09:15→20:06)
[2019-03-06] MEDS: Atorvastatin Calcium 40 MG TAB PO SCH (20:05)
[2019-03-06] MEDS: Enoxaparin Sodium 40 MG/0.4 ML SYRINGE SC SCH (20:06)
[2019-03-06] MEDS: Melatonin 3 MG TAB PO SCH (22:16)
[2019-03-06] MEDS: traZODone HCl 50 MG TAB PO SCH (22:16)
[2019-03-07] MEDS: Piperacillin/Tazobactam 4.5 GM in Sodium Chloride 0.9% 100 ML IVPB SCH ×3 (04:49→20:57)
[2019-03-07] MEDS: HYDROmorphone 2 MG TAB PO PRN ×3 (05:32→21:04)
--- NOTE | 2019-03-07 07:51 | PRG ---
DATE OF SERVICE: 03/06/2019 SUBJECTIVE: The patient feels better today with decreased pain in the stump, but has been found to have some drainage from the stump and some dehiscence of the central part of the wound. She is having no fever or chills. Decreasing leg pain. OBJECTIVE: VITAL SIGNS: Show temperature 98.2, pulse 70, respirations 16, O2 sats 98% on room air, and blood pressure 115/58. LUNGS: Clear. CARDIAC: Showed regular rhythm. ABDOMEN: Soft and nontender. Left stump shows sutures removed with eschar still in place and beginning to show some dehiscence about 0.5 inch deep, 0.5 inch wide. ASSESSMENT: 1. Left drhel-ugf-vczy amputation with dehiscence of wound, on antibiotics until March 09. 2. Stable hypertension. PLAN: Send pictures to surgeon, Dr. Brown and get opinion on whether needs debridement or wound VAC. We will get another culture today to determine need to continue antibiotics. Job ID: [id number]
[2019-03-07] MEDS: Clopidogrel Bisulfate 75 MG TAB PO SCH (08:56)
[2019-03-07] MEDS: Aspirin Chewable 81 MG TAB PO SCH (08:56)
[2019-03-07] MEDS: Nystatin Cream 15 GM TUBE TOP SCH ×2 (08:56→21:03)
[2019-03-07] MEDS: Metoprolol Tartrate 25 MG TAB PO SCH ×2 (08:56→21:01)
[2019-03-07] MEDS: Atorvastatin Calcium 40 MG TAB PO SCH (21:00)
[2019-03-07] MEDS: Enoxaparin Sodium 40 MG/0.4 ML SYRINGE SC SCH (21:00)
[2019-03-07] MEDS: Melatonin 3 MG TAB PO SCH (21:00)
[2019-03-07] MEDS: traZODone HCl 50 MG TAB PO SCH (21:01)
[2019-03-08] MEDS: Piperacillin/Tazobactam 4.5 GM in Sodium Chloride 0.9% 100 ML IVPB SCH ×3 (04:39→21:38)
[2019-03-08] MEDS: Metoprolol Tartrate 25 MG TAB PO SCH ×2 (09:19→21:39)
[2019-03-08] MEDS: Nystatin Cream 15 GM TUBE TOP SCH ×2 (09:20→21:41)
[2019-03-08] MEDS: Aspirin Chewable 81 MG TAB PO SCH (09:20)
[2019-03-08] MEDS: Clopidogrel Bisulfate 75 MG TAB PO SCH (09:20)
[2019-03-08] MEDS ORDERED: traMADol HCl 50 MG TAB PO PRN (11:01)
[2019-03-08] MEDS: HYDROmorphone 2 MG TAB PO PRN ×2 (13:10→21:40)
[2019-03-08] MEDS: Atorvastatin Calcium 40 MG TAB PO SCH (21:39)
[2019-03-08] MEDS: Melatonin 3 MG TAB PO SCH (21:39)
[2019-03-08] MEDS: traZODone HCl 50 MG TAB PO SCH (21:39)
[2019-03-08] MEDS: Enoxaparin Sodium 40 MG/0.4 ML SYRINGE SC SCH (21:39)
[2019-03-09] MEDS: Piperacillin/Tazobactam 4.5 GM in Sodium Chloride 0.9% 100 ML IVPB SCH ×2 (04:57→13:14)
[2019-03-09] MEDS: Clopidogrel Bisulfate 75 MG TAB PO SCH (08:40)
[2019-03-09] MEDS: Metoprolol Tartrate 25 MG TAB PO SCH ×2 (08:40→20:32)
[2019-03-09] MEDS: Aspirin Chewable 81 MG TAB PO SCH (08:40)
[2019-03-09] MEDS: Nystatin Cream 15 GM TUBE TOP SCH ×2 (08:41→20:33)
--- NOTE | 2019-03-09 10:58 | PRG ---
DATE OF SERVICE: 03/07/2019 SUBJECTIVE: The patient feels better with decreasing pain in the stump and is slowly having debridement of eschar with changes in wound dressing. Having no fever or chills. OBJECTIVE: VITAL SIGNS: Temperature 97, pulse 66, respirations 20, O2 saturations 100% on room air, blood pressure 131/78. EXTREMITIES: Left stump is bandaged, but is nontender and pictures show the healing eschar. ASSESSMENT: 1. Resolving left below knee amputation with wound healing with mild dehiscence of the wound with removal of sutures. 2. Hypertension, controlled to goal. 3. Deconditioning, improving greatly. PLAN: 1. Discussed PT/OT and continuation with therapy. The patient is getting stronger. 2. Continue wound care per nurses. 3. Continue blood pressure control. Job ID: [id number]
--- NOTE | 2019-03-09 10:58 | PRG ---
DATE OF SERVICE: 03/08/2019 SUBJECTIVE: The patient feels well, decreasing pain in her leg and decreasing drainage from her stump and is cooperating well with therapy. OBJECTIVE: VITAL SIGNS: Blood pressure is 140/70, temperature is 98.7, pulse 66, respirations 16, and O2 saturations 95% on room air. LUNGS: Clear. CARDIAC: Regular rhythm. No gallops or murmurs. ABDOMEN: Obese and nontender. SKIN AND EXTREMITIES: Showed left BKA healing well with no drainage. ASSESSMENT: 1. Stable hypertension. 2. Resolving left below knee amputation with dehiscence of wound, but with secondary healing. 3. Deconditioning, improving greatly with therapy. PLAN: Continue PT, OT and nursing wound care this weekend, possibly discharge home next week as patient feels she is close to baseline to maintain ADLs. Job ID: [id number]
--- NOTE | 2019-03-09 10:58 | PRG ---
DATE OF SERVICE: 03/09/2019 SUBJECTIVE: The patient feels well. States she is ready for discharge next week and feels her right leg is strong. Also left leg appears to have minimal pain and is having decreasing drainage with wound care. OBJECTIVE: LUNGS: Clear. CARDIAC: Regular rhythm. EXTREMITIES: Wound is bandaged with no drainage or redness and no tenderness. ASSESSMENT: 1. Resolving left below knee amputation, status post mild dehiscence of wound with bandaging clean. 2. Hypertension, controlled to goal. 3. Deconditioning, resolved. PLAN: Possible discharge on Monday. Continue wound care. Continue blood pressure control. Job ID: [id number]
[2019-03-09] MEDS: Melatonin 3 MG TAB PO SCH (20:32)
[2019-03-09] MEDS: traZODone HCl 50 MG TAB PO SCH (20:32)
[2019-03-09] MEDS: Enoxaparin Sodium 40 MG/0.4 ML SYRINGE SC SCH (20:33)
[2019-03-09] MEDS: Atorvastatin Calcium 40 MG TAB PO SCH (20:35)
[2019-03-10] MEDS: Metoprolol Tartrate 25 MG TAB PO SCH ×2 (08:29→20:57)
[2019-03-10] MEDS: Clopidogrel Bisulfate 75 MG TAB PO SCH (08:29)
[2019-03-10] MEDS: Aspirin Chewable 81 MG TAB PO SCH (08:29)
[2019-03-10] MEDS: Nystatin Cream 15 GM TUBE TOP SCH ×2 (08:30→20:59)
--- NOTE | 2019-03-10 17:41 | PRG ---
DATE OF SERVICE: 03/10/2019 SUBJECTIVE: The patient feels well with minimal pain in her stump and has been massaging it and has had no complaints today. OBJECTIVE: VITAL SIGNS: Blood pressure is 119/60, temperature is 97, pulse 61, respirations 20, and O2 sats 93% on room air. EXTREMITIES: Left stump is bandaged, but only minimal tenderness on the lateral aspect. LUNGS: Clear. CARDIAC: Regular rhythm. ASSESSMENT: 1. Resolving left fljtt-jlu-ckpj amputation with sutures removed and some minimal dehiscence, but appears to be responding to wound care with no evidence of infection, off antibiotics now. 2. Hypertension, controlled to goal. 3. Deconditioning, greatly improved. This patient is ambulating with one leg through her wheelchair. PLAN: 1. Discuss with her surgeon tomorrow on followup. 2. Discuss with Physical Therapy whether she qualifies for more therapy. 3. Remind nurses to take pictures and put in the chart. Job ID: [id number]
[2019-03-10] MEDS: traZODone HCl 50 MG TAB PO SCH (20:57)
[2019-03-10] MEDS: Melatonin 3 MG TAB PO SCH (20:57)
[2019-03-10] MEDS: Atorvastatin Calcium 40 MG TAB PO SCH (20:57)
[2019-03-10] MEDS: Enoxaparin Sodium 40 MG/0.4 ML SYRINGE SC SCH (20:58)
[2019-03-11] MEDS: Aspirin Chewable 81 MG TAB PO SCH (08:58)
[2019-03-11] MEDS: Clopidogrel Bisulfate 75 MG TAB PO SCH (08:58)
[2019-03-11] MEDS: Metoprolol Tartrate 25 MG TAB PO SCH ×2 (08:58→20:08)
[2019-03-11] MEDS: Nystatin Cream 15 GM TUBE TOP SCH ×2 (08:59→20:08)
[2019-03-11] MEDS: Enoxaparin Sodium 40 MG/0.4 ML SYRINGE SC SCH (20:08)
[2019-03-11] MEDS: Melatonin 3 MG TAB PO SCH (20:08)
[2019-03-11] MEDS: traZODone HCl 50 MG TAB PO SCH (20:09)
[2019-03-11] MEDS ORDERED: Atorvastatin Calcium 20 MG TAB PO SCH (21:00)
[2019-03-12 08:52] VITALS: BP 173/83; TEMP 98.2
[2019-03-12] MEDS: Aspirin Chewable 81 MG TAB PO SCH (09:56)
[2019-03-12] MEDS: Clopidogrel Bisulfate 75 MG TAB PO SCH (09:56)
[2019-03-12] MEDS: Metoprolol Tartrate 25 MG TAB PO SCH (09:56)
[2019-03-12] MEDS: Nystatin Cream 15 GM TUBE TOP SCH (09:56)
== END 2019-03-12 10:19 | disposition home health service (06) | DRG 560 ==
LOC: NAV ACUTE 19:06
PROVIDERS: ADMIT Internal Medicine; ATTEND Internal Medicine
DX: Z47.81 Encounter for orthopedic aftercare following surgical amputation (principal); R78.81 Bacteremia; I25.10 Atherosclerotic heart disease of native coronary artery without angina pectoris; E66.9 Obesity, unspecified; B96.5 Pseudomonas (aeruginosa) (mallei) (pseudomallei) as the cause of diseases classified elsewhere; I10 Essential (primary) hypertension; I73.9 Peripheral vascular disease, unspecified; T87.81 Dehiscence of amputation stump; F41.9 Anxiety disorder, unspecified; E78.5 Hyperlipidemia, unspecified; Z89.512 Acquired absence of left leg below knee; I25.2 Old myocardial infarction; Z90.49 Acquired absence of other specified parts of digestive tract; Z98.51 Tubal ligation status; Z88.8 Allergy status to other drugs, medicaments and biological substances; Z68.39 Body mass index [BMI] 39.0-39.9, adult
CPT/HCPCS: 80053; 85025; 87070; 87205; 97602; J1650; J2543; J3490